=== PATIENT | female | born 1990 | race Hispanic/Latino ===

== ENCOUNTER 2021-07-23 22:52 | Emergency (ER) | payer OTHER, SELFPAY ==
[2021-07-23] MEDS ORDERED: KETOROLAC 30 MG/ML INJ ONE (23:50)
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
[2021-07-24 01:01] VITALS: BP 128/96; TEMP 98.8; O2SAT 100
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
[2021-07-31 16:09] LABS: Urine Blood Negative (Negative); Urine Glucose Negative (Negative); Urine Protein Negative (Negative)
== END 2021-07-24 00:41 | disposition home or self-care (01) ==
LOC: ER 22:52
DX: S50.812A Abrasion of left forearm, initial encounter (principal); S80.02XA Contusion of left knee, initial encounter; V49.40XA Driver injured in collision with unspecified motor vehicles in traffic accident, initial encounter
CPT/HCPCS: 81003; 81025; 96372; 99284